=== PATIENT | male | born 1965 | race Caucasian/White ===

== ENCOUNTER 2017-09-04 01:28 | Emergency (ER) | payer SELFPAY ==
[~2017-09-04] VITALS: Ht 182.9 cm; Wt 113.0 kg
[2017-09-04 01:37] VITALS: BP 130/93
[2017-09-04] MEDS ORDERED: ACETAMINOPHEN 325 MG TABLET PO ONE (02:30)
== END 2017-09-04 02:54 | disposition home or self-care (01) ==
LOC: EDBD 01:28 → ED 02:48
DX: G89.29 Other chronic pain (principal); M25.561 Pain in right knee; M25.562 Pain in left knee; F15.10 Other stimulant abuse, uncomplicated
CPT/HCPCS: 99283